=== PATIENT | female | born 1980 | race American Indian/Alaskan Native ===

== ENCOUNTER 2016-10-14 20:14 | Emergency (ER) | payer SELFPAY ==
[2016-10-14 21:18] LABS: Anion Gap 19 mmol/L; BUN/Creatinine Ratio 11.81; Blood Urea Nitrogen 13 mg/dL (7-17); Calcium 9.2 mg/dL (8.4-10.2); Carbon Dioxide 26 mmol/L (22-30); Chloride 97.5 mmol/L (98-107); Glucose 100 mg/dL (65-100); Sodium 138 mmol/L (137-145)
[2016-10-14 21:36] LABS: Bilirubin,Urine NEG (Negative); Blood,Urine MOD (Negative); Ketones,Urine NEG (Negative); Leukocyte Esterase,Urine NEG (Negative); Nitrite,Urine NEG (Negative); Protein,Urine <15 mg/dL mg/dL (Negative); Urobilinogen,Urine < 2.0 mg/dL (<2.0)
[2016-10-14 21:50] LABS: Hematocrit 33.3 % (30.3-42.9); Hemoglobin 10.5 gm/dl (10.1-14.3); Mean Corpuscular HGB Conc 31 % (30-34); Mean Corpuscular Volume 81 fl (79-97); Platelet Count 397 K/mm3 (140-440); Red Blood Count 4.11 M/mm3 (3.65-5.03); Red Cell Distribution Width 17.2 % (13.2-15.2); White Blood Count 4.7 K/mm3 (4.5-11.0)
[2016-10-14 21:52] LABS: Mean Corpuscular Hemoglobin 26 pg (28-32)
[2016-10-14] MEDS ORDERED: TYLENOL PO ONE (23:27)
[2016-10-15 00:01] VITALS: BP 115/68
[2016-10-15] MEDS ORDERED: VALIUM IM ONE (00:57)
[2016-10-15] MEDS ORDERED: ZOFRAN ODT PO ONE (00:57)
[2016-10-15] MEDS ORDERED: NACL 0.9% 1000 ML 1,000 ML IV ONE (00:59)
[2016-10-15] MEDS ORDERED: ZOFRAN IV ONE (00:59)
[2016-10-15] MEDS ORDERED: VALIUM IV ONE (00:59)
--- NOTE | 2016-10-15 00:59 | Emergency Department Report ---
HPI - General Chief Complaint: Back Pain/Injury Time Seen by Provider: 10/15/16 00:18 - HPI HPI: The patient's presence of female presents for evaluation of left flank pain. The patient reports left flank pain for the past 5 days, constant since onset, 10/10 in severity, radiating into the left abdomen, sharp in quality. The patient denies fever, chills, night sweats, chest pain, dyspnea, diarrhea, blood in the stool, dark tarry stool, dysuria, hematuria, vaginal bleeding, genital discharge, inability to pass flatus. ED Past Medical Hx - Past Medical History Hx Hypertension: Yes - Surgical History Additional Surgical History: rt ear,tubaligation - Social History Smoking Status: Never Smoker Substance Use Type: Alcohol - Medications Home Medications: Home Medications Medication Instructions Recorded Confirmed Last Taken Type HYDROcodone/APAP 5-325 [[place] 1 each PO Q8HR PRN #10 tablet 01/14/14 Unknown Rx 5/325] Phenazopyridine [Pyridium] 200 mg PO Q8H #6 tablet 01/14/14 Unknown Rx Sulfamethoxazole/Trimethoprim 1 each PO BID #20 tablet 01/14/14 Unknown Rx [Bactrim Ds] Ciprofloxacin HCl [Ciprofloxacin 500 mg PO BID #20 tablet 04/09/16 Unknown Rx TAB] Lisinopril/Hydrochlorothiazide 1 tab PO QDAY #30 tab 06/05/16 Unknown Rx [Zestoretic 20-25 mg] Cyclobenzaprine HCl [Flexeril 5 MG 5 mg PO Q8HR PRN #15 tab 10/15/16 Unknown Rx TAB] Ibuprofen [Motrin] 800 mg PO Q8HR PRN #15 tablet 10/15/16 Unknown Rx ED Review of Systems ROS: Stated complaint: LT SIDE PRESSURE/LIGHT HEADED/SOB Other details as noted in HPI Constitutional: denies: fever ENT: denies: throat or neck pain Respiratory: denies: cough, shortness of breath Cardiovascular: denies: chest pain Endocrine: denies unexplained weight loss or gain Gastrointestinal: denies: abdominal pain, nausea Genitourinary: denies: dysuria Musculoskeletal: reports left sided pain denies: leg swelling Skin: denies: rash Neurological: denies: headache Hematological/Lymphatic: denies: easy bleeding or easy bruising Psych: denies sadness or hopelessness Physical Exam - Physical Exam Vital Signs: Vital Signs 10/14/16 10/14/16 10/15/16 20:24 23:22 00:00 Temperature 97.4 F L 98.1 F 98.7 F Pulse Rate 91 H 87 82 Respiratory 18 18 14 Rate Blood Pressure 116/74 109/71 Blood Pressure 115/68 [Left] O2 Sat by Pulse 100 100 99 Oximetry Physical Exam: General: well-nourished, well-developed, no acute distress Head: Normocephalic, atraumatic Eyes: normal sclera ENT: Mucous membranes are pale and dry Neck: No neck stiffness, no cervical adenopathy Respiratory: Breath sounds equal bilaterally, no wheezing, rales, or rhonchi Cardio: S1 and S2 present, no murmurs, rubs, gallops, capillary refill is delayed Abdomen: Normoactive bowel sounds, soft abdomen, LUQ tenderness present, no rigidity, no guarding or rebound tenderness Chest WALL/Back: No tenderness to palpation of the chest wall, left sided CVA tenderness with superficial palpation present Musc: No pitting edema Skin: No rash Neuro: no facial drooping, normal speech Psych: Normal affect ED Course Vital Signs 10/14/16 10/14/16 10/15/16 20:24 23:22 00:00 Temperature 97.4 F L 98.1 F 98.7 F Pulse Rate 91 H 87 82 Respiratory 18 18 14 Rate Blood Pressure 116/74 109/71 Blood Pressure 115/68 [Left] O2 Sat by Pulse 100 100 99 Oximetry ED Medical Decision Making - Lab Data Result diagrams: 10/14/16 20:48 10/14/16 20:48 - Medical Decision Making The patient is 36-year-old female well-known to myself, recently evaluated by myself for the same complaints within the past 4 days at an [facility], and [facility]. Evaluation at that time was completely unremarkable. The patient was seen and examined by myself. The patient is placed on a finance manager and continuous pulse ox. On initial evaluation, the patient was found to be in no distress. Evaluation orders are placed. The patient given 1 L normal saline fluid bolus for treatment of dehydration and IV Valium for treatment of her pain. Lab results were non-concerning including WBC , hemoglobin, hematocrit, electrolytes, renal function. The patient was reevaluated and reported that their symptoms were markedly improved. The patient is stable for discharge with outpatient follow-up. The patient is given follow-up and return instructions. The patient expressed understanding and agreed with the plan. The patient is discharged in stable condition. Critical care attestation.: If time is entered above; I have spent that time in minutes in the direct care of this critically ill patient, excluding procedure time. ED Disposition Clinical Impression: Acute left flank pain, Dehydration, Acute abdominal pain in left upper quadrant Disposition: DISCHARGED TO HOME OR SELFCARE Is pt being admited?: No Does the pt Need Aspirin: No Condition: Stable Instructions: Flank Pain (ED), Dehydration (ED) Referrals: PRIMARY CARE, [Primary Care Provider] - 3-5 Days Time of Disposition: 00:58
== END 2016-10-15 02:55 | disposition home or self-care (01) ==
LOC: ED 20:14
DX: R10.30 Lower abdominal pain, unspecified (principal); E86.0 Dehydration; I10 Essential (primary) hypertension
CPT/HCPCS: 36415; 80048; 81001; 81025; 85027; 96361; 96374; 96375; 99283; J2405; J3360; J7030

== ENCOUNTER 2016-10-16 19:45 | Inpatient (IN) | payer SELFPAY ==
[2016-10-16] MEDS ORDERED: MAGNESIUM SULFATE 2GM/50ML 2 GM/50 ML BAG IV ONE (21:21)
[2016-10-16] MEDS ORDERED: REGLAN IV ONE (21:21)
[2016-10-16] MEDS ORDERED: BENADRYL IV ONE (21:21)
--- NOTE | 2016-10-16 21:22 | Emergency Department Report ---
ED General Adult HPI - General Chief complaint: Headache Stated complaint: PRESSURE IN HEAD/BLURRY VISION Time Seen by Provider: 10/16/16 21:11 Source: patient, family, RN notes reviewed Mode of arrival: Ambulatory Limitations: No Limitations - History of Present Illness Initial comments: This is a 36-year-old female. She is previously unknown to me. She does not have a primary care doctor. She reports a past medical history of hypertension. The patient presents to the ER today complaining of headache. The headache is frontal and globally frontal and all sinuses. It is throbbing. It has been present for the past 3-4 days. It is not sudden or thunderclap in nature. It did not reach maximal intensity within an hour. It is not the worst headache of her life. She reports onset of worst headache approximately one year ago. She reports being seen at another hospital a few days ago for similar symptoms, and she reports that she had left-sided weakness and numbness. She reports having had a CAT scan of the chest, and reports that is negative. She also reports a cough and mucus production. There is currently no focal extremity weakness or numbness. There is no severe neck pain or neck stiffness. No fevers that she is aware of. She reports that she is not . She reported binocular blurry vision to the triage nurse, but to me, she denies blurry vision. She does report sensitivity to light and to sound. She does not have a formal diagnosis of migraines. -: Gradual Location: head, face Quality: aching Consistency: intermittent Improves with: other (exposure to light and sound worsens headache, palpation worsens the headache. Rest improves the headache) Associated Symptoms: cough, headaches, loss of appetite, weakness - Related Data Previous Rx's Medication Instructions Recorded Last Taken Type Cyclobenzaprine HCl [Flexeril 5 MG 5 mg PO Q8HR PRN #15 tab 10/15/16 Unknown Rx TAB] Butalb/Acetamin/Caff 50-325-40 2 tab PO Q4H PRN #30 tablet 10/18/16 Unknown Rx [Fioricet] Ketorolac [Toradol] 10 mg PO Q6H PRN #20 tablet 10/18/16 Unknown Rx Lisinopril/Hydrochlorothiazide 1 tab PO QDAY #30 tab 10/18/16 Unknown Rx [Zestoretic 20-25 mg] methylPREDNISolone [Medrol Dose 4 mg PO BID #3 pack 10/18/16 Unknown Rx [place]] Allergies Allergy/AdvReac Type Severity Reaction Status Date / Time hydrocodone AdvReac Vomiting Verified 04/09/16 19:55 ED Review of Systems ROS: Stated complaint: PRESSURE IN HEAD/BLURRY VISION Other details as noted in HPI Constitutional: denies: fever, malaise Eyes: denies: vision change ENT: denies: epistaxis Respiratory: denies: cough Cardiovascular: denies: chest pain Gastrointestinal: denies: abdominal pain Musculoskeletal: arthralgia, myalgia Neurological: headache, weakness, numbness Psychiatric: anxiety ED Past Medical Hx - Past Medical History Previous Medical History?: Yes Hx Hypertension: Yes - Surgical History Past Surgical History?: Yes Additional Surgical History: rt ear,tubaligation - Social History Smoking Status: Never Smoker Substance Use Type: None - Medications Home Medications: Home Medications Medication Instructions Recorded Confirmed Last Taken Type Cyclobenzaprine HCl [Flexeril 5 MG 5 mg PO Q8HR PRN #15 tab 10/15/16 Unknown Rx TAB] Butalb/Acetamin/Caff 50-325-40 2 tab PO Q4H PRN #30 tablet 10/18/16 Unknown Rx [Fioricet] Ketorolac [Toradol] 10 mg PO Q6H PRN #20 tablet 10/18/16 Unknown Rx Lisinopril/Hydrochlorothiazide 1 tab PO QDAY #30 tab 10/18/16 Unknown Rx [Zestoretic 20-25 mg] methylPREDNISolone [Medrol Dose 4 mg PO BID #3 pack 10/18/16 Unknown Rx [place]] ED Physical Exam - General Limitations: No Limitations General appearance: alert, in no apparent distress - Head Head exam: Present: atraumatic, normocephalic - Eye Eye exam: Present: normal appearance, PERRL, EOMI, other (visual acuity intact to finger counting, color perception, reading at a close distance). Absent: nystagmus - ENT ENT exam: Present: normal exam, normal orophraynx, mucous membranes moist, normal external ear exam - Neck Neck exam: Present: normal inspection, full ROM. Absent: tenderness, meningismus - Respiratory Respiratory exam: Present: normal lung sounds bilaterally. Absent: respiratory distress, wheezes, rales, rhonchi, stridor, chest wall tenderness, accessory muscle use, decreased breath sounds, prolonged expiratory - Cardiovascular Cardiovascular Exam: Present: regular rate, normal rhythm, normal heart sounds. Absent: bradycardia, tachycardia, irregular rhythm, systolic murmur, diastolic murmur, rubs, gallop - GI/Abdominal GI/Abdominal exam: Present: soft, normal bowel sounds. Absent: distended, tenderness, guarding, rebound, rigid, pulsatile mass - Extremities Exam Extremities exam: Present: normal inspection, full ROM, normal capillary refill. Absent: tenderness, pedal edema, joint swelling, calf tenderness - Back Exam Back exam: Present: normal inspection, full ROM. Absent: tenderness, CVA tenderness (R), CVA tenderness (L), muscle spasm, paraspinal tenderness, vertebral tenderness - Neurological Exam Neurological exam: Present: alert, oriented X3, normal gait (normal gait. Normal tandem gait. Negative Romberg examination.), other (Extraocular movements intact. Tongue midline. No facial droop. Facial sensation intact to light touch in the V1, V2, V3 distribution bilaterally. 5 and 5 strength in 4 extremities.. Sensation is intact to light touch in 4 extremities.). Absent : motor sensory deficit - Psychiatric Psychiatric exam: Present: normal affect, normal mood - Skin Skin exam: Present: warm, dry, intact, normal color. Absent: rash ED Course Vital Signs 10/16/16 19:52 Temperature 99.3 F Pulse Rate 90 Blood Pressure 140/95 O2 Sat by Pulse 99 Oximetry - Reevaluation(s) Reevaluation #1: 10/16/16 21:31 differential diagnosis: Migraine headache, tension headache, cluster headache, intracranial mass lesion, transient ischemic attack, bronchitis Assessment and plan: 36-year-old female with complaint of headache, nonspecific blurry vision, resolved left-sided weakness a few days ago. Most likely complex migraine, however she has not had a formal diagnosis of complex migraine in the past. We will treat her symptomatically. She reports that she is not . A noncontrast CT scan of the brain is ordered. not a TPA candidate, currently has an NIH score of 0. Plan to admit once initially points back. Reevaluation #2: 10/16/16 22:[address] scan of the brain is negative. Aspirin is ordered. X-ray chest is pending. case d/w Hospital physician Dr Taylor, who accepts patient to his service ED Medical Decision Making - Lab Data Result diagrams: 10/16/16 21:43 10/16/16 21:43 Vital Signs 10/16/16 19:52 Temperature 99.3 F Pulse Rate 90 Blood Pressure 140/95 O2 Sat by Pulse 99 Oximetry Lab Results 10/16/16 Range/Units 21:43 WBC 5.0 (4.5-11.0) K/mm3 RBC 3.84 (3.65-5.03) M/mm3 Hgb 9.8 L (10.1-14.3) gm/dl Hct 31.3 (30.3-42.9) % MCV 82 (79-97) fl MCH 26 L (28-32) pg MCHC 31 (30-34) % RDW 17.3 H (13.2-15.2) % Plt Count 325 (140-440) K/mm3 Lymph % (Auto) 15.7 (13.4-35.0) % [place] % (Auto) 9.9 H (0.0-7.3) % Eos % (Auto) 0.4 (0.0-4.3) % Baso % (Auto) 1.0 (0.0-1.8) % Lymph # 0.8 L (1.2-5.4) K/mm3 [place] # 0.5 (0.0-0.8) K/mm3 Eos # 0.0 (0.0-0.4) K/mm3 Baso # 0.0 (0.0-0.1) K/mm3 Seg Neutrophils % 73.0 H (40.0-70.0) % Seg Neutrophils # 3.6 (1.8-7.7) K/mm3 - EKG Data -: EKG Interpreted by Vt EKG shows normal: sinus rhythm, axis, intervals, QRS complexes, ST-T waves Rate: normal - EKG Data When compared to previous EKG there are: previous EKG unavailable - Radiology Data Radiology results: report reviewed, image reviewed Noncontrast CT scan of the brain is negative for acute disease, patient is status post right-sided mastoidectomy in the distant past Critical care attestation.: If time is entered above; I have spent that time in minutes in the direct care of this critically ill patient, excluding procedure time. ED Disposition Clinical Impression: Headache, Cough, TIA (transient ischemic attack) Disposition: OP ADMITTED IP TO THIS HOSP Is pt being admited?: Yes Does the pt Need Aspirin: Yes Condition: Stable
--- NOTE | 2016-10-16 21:49 | Cat Scan Report ---
FINAL REPORT PROCEDURE: CT HEAD/BRAIN WO CON TECHNIQUE: Computerized tomography of the head was performed without contrast material. HISTORY: suspected stroke COMPARISON: No prior studies are available for comparison. FINDINGS: Skull and scalp: Normal. Paranasal sinuses: Normal. Ventricles and subarachnoid spaces: Normal. Cerebrum: No evidence of hemorrhage, acute infarction or mass . Cerebellum and brainstem: No evidence of hemorrhage, acute infarction or mass. Vasculature: Normal. Comments: There has been a right mastoidectomy.. IMPRESSION: There is no intracranial hemorrhage, edema, mass, mass effect or midline shift. There is been a right mastoidectomy.
[2016-10-16 22:01] LABS: Eosinophils % (Auto) 0.4 % (0.0-4.3); Hematocrit 31.3 % (30.3-42.9); Hemoglobin 9.8 gm/dl (10.1-14.3); Mean Corpuscular HGB Conc 31 % (30-34); Mean Corpuscular Volume 82 fl (79-97); Platelet Count 325 K/mm3 (140-440); Red Blood Count 3.84 M/mm3 (3.65-5.03); Red Cell Distribution Width 17.3 % (13.2-15.2)
[2016-10-16 22:03] LABS: Mean Corpuscular Hemoglobin 26 pg (28-32)
[2016-10-16 22:09] LABS: INR 1.07 (0.87-1.13)
[2016-10-16 22:10] LABS: Partial Thromboplastin Time 32.4 Sec. (24.2-36.6)
[2016-10-16 22:29] LABS: Alanine Aminotransferase 11 units/L (7-56); Albumin/Globulin Ratio 1.1 %; Alkaline Phosphatase 67 units/L (35-129); Anion Gap 16 mmol/L; BUN/Creatinine Ratio 8.88; Bilirubin,Total 0.2 mg/dL (0.1-1.2); Blood Urea Nitrogen 8 mg/dL (7-17); Calcium 9.1 mg/dL (8.4-10.2); Carbon Dioxide 27 mmol/L (22-30); Chloride 99.7 mmol/L (98-107); Creatine Kinase 47 units/L (30-135); Glucose 90 mg/dL (65-100); Potassium 4.3 mmol/L (3.6-5.0); Sodium 138 mmol/L (137-145); Total Protein 7.7 g/dL (6.3-8.2)
[2016-10-16 22:31] LABS: Creatine Kinase MB < 1.0 ng/mL (0.0-4.0)
[2016-10-16] MEDS ORDERED: BABY ASPIRIN PO ONE (22:35)
[2016-10-16] MEDS ORDERED: MORPHINE IV PRN (23:26)
[2016-10-16] MEDS ORDERED: MILK OF MAGNESIA PO PRN (23:26)
[2016-10-16] MEDS ORDERED: ZOFRAN IV PRN (23:26)
[2016-10-16] MEDS ORDERED: TYLENOL PO PRN (23:26)
[2016-10-16] MEDS ORDERED: DULCOLAX PR PRN (23:26)
[2016-10-16] MEDS ORDERED: HEPARIN SUB-Q ONE (23:34)
[2016-10-16] MEDS ORDERED: BENADRYL ONE (23:37)
[2016-10-16] MEDS ORDERED: REGLAN ONE (23:37)
--- NOTE | 2016-10-16 23:58 | History and Physical Report ---
History of Present Illness Date of examination: 10/16/16 Date of admission: 10/16/16 23:26 Chief complaint: Headache for 3 days with intermittent blurred vision History of present illness: 86-year-old -[place] female with history of hypertension seen in the emergency department for above complaint She was seen in the emergency department at [facility] 3 days ago for headache subsequently discharged. Details not known at this time Since then she continues to have headaches she says it's more like a pressure in the head than a headache. has intermittent blurred vision. She also complains of cough with mucoid sputum and states her pressure in the head is increases when she bends down. He denies any fever or chills sore throat dysphagia nasal congestion She denies any nausea or vomitings abdominal pain hematemesis or melena She denies any chest pain or shortness of breath palpitations or syncope Denies any dysuria or urinary frequency or flank pain or hematuria Past History Past Medical History: hypertension Past Surgical History: Other (tubal ligation and right mastoidectomy) Social history: no significant social history Family history: no significant family history Medications and Allergies Allergies Allergy/AdvReac Type Severity Reaction Status Date / Time hydrocodone AdvReac Vomiting Verified 04/09/16 19:55 Home Medications Medication Instructions Recorded Confirmed Last Taken Type HYDROcodone/APAP 5-325 [[place] 1 each PO Q8HR PRN #10 tablet 01/14/14 Unknown Rx 5/325] Phenazopyridine [Pyridium] 200 mg PO Q8H #6 tablet 01/14/14 Unknown Rx Sulfamethoxazole/Trimethoprim 1 each PO BID #20 tablet 01/14/14 Unknown Rx [Bactrim Ds] Ciprofloxacin HCl [Ciprofloxacin 500 mg PO BID #20 tablet 04/09/16 Unknown Rx TAB] Lisinopril/Hydrochlorothiazide 1 tab PO QDAY #30 tab 06/05/16 Unknown Rx [Zestoretic 20-25 mg] Cyclobenzaprine HCl [Flexeril 5 MG 5 mg PO Q8HR PRN #15 tab 10/15/16 Unknown Rx TAB] Ibuprofen [Motrin] 800 mg PO Q8HR PRN #15 tablet 10/15/16 Unknown Rx Active Meds: Active Medications Acetaminophen (Tylenol) 650 mg PO Q4H PRN PRN Reason: Pain MILD(1-3)/Fever >100.5/ASENCIO Bisacodyl (Dulcolax) 10 mg MS QDAY PRN PRN Reason: Constipation unrelieved by MOM Lisinopril (Zestril) 20 mg PO DAILY MARÍA Magnesium Hydroxide (Milk Of Magnesia) 30 ml PO Q4H PRN PRN Reason: Constipation Metoprolol Tartrate (Lopressor) 25 mg PO DAILY MARÍA Morphine Sulfate (Morphine) 1 mg IV Q4H PRN PRN Reason: Pain, Moderate (4-6) Ondansetron HCl (Zofran) 4 mg IV Q8H PRN PRN Reason: N/V unrelieved by Reglan Review of Systems All systems: negative (as stated above in the history of present illness) Exam - Constitutional Vitals: Temp Pulse Resp BP Pulse Ox 99.3 F 90 140/95 99 10/16/16 19:52 10/16/16 19:52 10/16/16 19:52 10/16/16 19:52 General appearance: Present: no acute distress, well-nourished - EENT Eyes: Present: PERRL, EOM intact ENT: hearing intact, clear oral mucosa, other (no sinus tenderness), no thrush - Neck Neck: Present: supple, normal ROM. Absent: masses or JVD - Respiratory Respiratory effort: normal Respiratory: bilateral: CTA - Cardiovascular Rhythm: regular Heart Sounds: Present: S1 & S2 - Extremities Extremities: No edema - Abdominal General gastrointestinal: Present: soft, non-tender. Absent: hepatomegaly, splenomegaly Female genitourinary: Present: deferred - Rectal Rectal Exam: deferred - Integumentary Integumentary: Present: clear - Musculoskeletal Musculoskeletal: strength equal bilaterally - Psychiatric Psychiatric: appropriate mood/affect - Neurologic Neurologic: no focal deficits, moves all extremities Results - Labs CBC & Chem 7: 10/16/16 21:43 10/16/16 21:43 Assessment and Plan - Patient Problems (1) Headache Current Visit: Yes Status: Acute Qualifiers: Headache type: H Headache chronicity pattern: H Intractability: I Plan to address problem: Etiology unclear CT of the head shows old not acute lesions and normal paranasal sinuses Rule out complex migraine, rule out tension headaches We will request a neurology consult (2) Hypertension Current Visit: Yes Status: Chronic Qualifiers: Hypertension type: H Plan to address problem: Well-controlled Continue home medication (3) Normocytic anemia Current Visit: Yes Status: Chronic Plan to address problem: No overt bleed Most likely chronic No anemia workup at this time
[2016-10-17] MEDS ORDERED: HEPARIN ONE (00:31)
--- NOTE | 2016-10-17 07:17 | Admit Criteria Form ---
Admission Criteria Documentation: HEADACHES Clinical Indications for Admission to Inpatient Care (Place 'X' for any and all applicable criteria): Admission is indicated for ANY ONE of the following(1)(2)(3)(4): [X]I. Inpatient admission required rather than observational care (Also use Headaches: Observation Care as appropriate) because of ANY ONE of the following: [X]a) Severe pain requiring acute inpatient management [ ]b) Altered mental status that is severe or persistent [ ]c) Vomiting or dehydration that is severe or persistent [ ]d) New-onset focal neurologic deficit that is severe or persistent [ ]e) Hypertension requiring inpatient treatment [ ]f) Severe (new) neurologic findings requiring inpatient care as indicated by ANY ONE of following(9)(10): [ ]1) Papilledema [ ]2) Cerebral edema [ ]3) Mass effect on CT scan [ ]4) Cerebral bleeding, ischemia, or vasospasm(16) [ ]5) Hydrocephalus(17) [ ]6) Uncontrolled seizures [ ]g) IV infusion of anticoagulation, platelet inhibitors vasoactive, or antiarrhythmic medication. [ ]h) Cerebral bleeding, hydrocephalus, or vasospasm monitoring (16) [ ]i) Increased intracranial pressure or cerebral edema monitoring (17) [ ]j) Other condition, treatment or monitoring requiring inpatient admission [ ]II. Unruptured but threatening aneurysm or vascular malformation [ ]III. Venous sinus thrombosis [ ]IV. Increased intracranial pressure [ ]V. Cerebral spinal fluid leak with decreased intracranial pressure [ ]. Medication-overuse headache that has failed all outpatient management options [ ]VII. Vasculitis (eg, giant cell (temporal) arteritis, central nervous system vasculitis) requiring IV corticosteroids, IV antithrombotic therapy, or inpatient monitoring (eg, visual symptoms or findings, other ischemic manifestations)[A](10)(11) Extended stay beyond goal length of stay may be needed for (27): [ ]a) Intractable migraine [ ]b) Subarachnoid or intracranial hemorrhage [ ]c) Malignant hypertension [ ]d) Detoxification from drug withdrawal in medication-overuse headache (29) The original [facility] content created by [email or web address] [employer] has been revised. The portions of the content which have been revised are identified through the use of italic text or in bold, and [employer] has neither reviewed nor approved the modified material.All other unmodified content is copyright [facility]. Please see references footnoted in the original [facility] edition 2016 Admission Criteria Met: Yes
--- NOTE | 2016-10-17 08:55 | XRay Report ---
CHEST ONE VIEW INDICATION: Cough. COMPARISON: None similar. FINDINGS: Portable, single, frontal chest radiograph demonstrates normal cardiomediastinal silhouette. Clear lungs. Intact bones. CONCLUSION: No acute disease in the chest. Thank you for the opportunity to participate in this patient's care.
[2016-10-17] MEDS: ZESTRIL PO SCH (10:18)
[2016-10-17] MEDS: LOPRESSOR PO SCH (10:19)
[2016-10-17] MEDS ORDERED: FIORICET PO PRN (12:00)
--- NOTE | 2016-10-17 12:20 | Consultation ---
History of Present Illness Consult date: 10/17/16 Requesting physician: ERIS DONNELLY Reason for Consult: ASENCIO Chief complaint: head pressure History of present illness: 36 YO F p/w 1 week of intermittent head pressure. Sx began on 10/10 w/ odd "out of body" experience but no LOC. Location of pain is bifrontal . Duration of pain is constant waxing and waning. Pain is worsened by activity and sounds/ light and relieved by rest. She affirms nausea but denies vomiting. There are no clear temporal factors. Severity is such to limit ability to function comfortably. She affirms prior sx of lightheadedness and tunnel vision assoc w/ low CBG. On 10/14 she felt L sided heaviness greater than right. She denies neck pain. Past History Past Medical History: hypertension Past Surgical History: Other (tubal ligation and right mastoidectomy) Social history: no significant social history Family history: no significant family history Medications and Allergies Allergies Allergy/AdvReac Type Severity Reaction Status Date / Time hydrocodone AdvReac Vomiting Verified 04/09/16 19:55 Home Medications Medication Instructions Recorded Confirmed Last Taken Type HYDROcodone/APAP 5-325 [[place] 1 each PO Q8HR PRN #10 tablet 01/14/14 Unknown Rx 5/325] Phenazopyridine [Pyridium] 200 mg PO Q8H #6 tablet 01/14/14 Unknown Rx Sulfamethoxazole/Trimethoprim 1 each PO BID #20 tablet 01/14/14 Unknown Rx [Bactrim Ds] Ciprofloxacin HCl [Ciprofloxacin 500 mg PO BID #20 tablet 04/09/16 Unknown Rx TAB] Lisinopril/Hydrochlorothiazide 1 tab PO QDAY #30 tab 06/05/16 Unknown Rx [Zestoretic 20-25 mg] Cyclobenzaprine HCl [Flexeril 5 MG 5 mg PO Q8HR PRN #15 tab 10/15/16 Unknown Rx TAB] Ibuprofen [Motrin] 800 mg PO Q8HR PRN #15 tablet 10/15/16 Unknown Rx Active Meds: Active Medications Acetaminophen (Tylenol) 650 mg PO Q4H PRN PRN Reason: Pain MILD(1-3)/Fever >100.5/ASENCIO Last Admin: 10/17/16 11:10 Dose: 650 mg Acetaminophen/Butalbital/Caffeine (Fioricet) 2 tab PO Q4H PRN PRN Reason: Headache Bisacodyl (Dulcolax) 10 mg NE QDAY PRN PRN Reason: Constipation unrelieved by MOM Dexamethasone (Decadron) 4 mg IV Q12HR [facility] Stop: 10/20/16 10:01 Valproate Sodium 500 mg/ (Sodium Chloride) 105 mls @ 100 mls/hr IV Q8HR [facility] Stop: 10/18/16 07:02 Lisinopril (Zestril) 20 mg PO DAILY [facility] Last Admin: 10/17/16 10:18 Dose: 20 mg Magnesium Hydroxide (Milk Of Magnesia) 30 ml PO Q4H PRN PRN Reason: Constipation Metoprolol Tartrate (Lopressor) 25 mg PO DAILY [facility] Last Admin: 10/17/16 10:19 Dose: Not Given Morphine Sulfate (Morphine) 1 mg IV Q4H PRN PRN Reason: Pain, Moderate (4-6) Ondansetron HCl (Zofran) 4 mg IV Q8H PRN PRN Reason: N/V unrelieved by Reglan Review of Systems All systems: negative Constitutional: fatigue, weakness, malaise, lethargy Neurological: headaches Physical Examination - Vital Signs Vital Signs: Vital Signs Temp Pulse BP Pulse Ox 99.3 F 90 140/95 99 10/16/16 19:52 10/16/16 19:52 10/16/16 19:52 10/16/16 19:52 - Constitutional General appearance: comfortable - EENT EENT: Present: ATNC, PERRL, mucous membranes moist, hearing intact, vision intact - Respiratory Respiratory: Present: chest non-tender, normal breath sounds, no respiratory distress - Cardiovascular Cardiovascular: Present: regular rate Extremities: Present: no peripheral edema bilatateraly, no clubbing, cyanosis, no inflammation, no ischemia or petechiae - Gastrointestinal Gastrointestinal: Present: normoactive bowel sounds, soft, non-distended - Integumentary Integumentary: Present: normal - Neurologic Cranial nerve examination: PERRL, EOMI, VFF, V1/V2/V3 grossly intact, face symmetric, tongue midline, intact, intact shoulder shrug, intact cough reflex, Intact Vestibulo-ocular r, intact corneal reflex, normal palatal elevation Speech examination: intact Sensorimotor examination: intact Detailed motor examination: full strength in all amy Motor examination - right side: 5/5: biceps, triceps, wrist flexion, wrist extension, utilization management rn, hip flexors, knee extensors, dorsiflexion, toe extension (EHL) , plantarflexion Motor examination - left side: 5/5: biceps, triceps, wrist flexion, wrist extension, utilization management rn, hip flexors, knee extensors, dorsiflexion, toe extension (EHL) , plantarflexion Detailed sensory examination: intact, light touch, temperature Reflex and gait examination: intact Reflexes: 2+: ankle, bicep, knee, tricep - Musculoskeletal Musculoskeletal: Present: no fluid collection, no pain, normal range of motion - Psychiatric Psychiatric: Present: mood/affect appropriate, cooperative Results - Laboratory Findings CBC and BMP: 10/16/16 21:43 10/16/16 21:43 Assessment and Plan 36 YO F Hx 1 prior reported migraine who p/w 1 week of constant crescendo pattern pressure pulsatile head pain assoc w/ N/photo-/sono-phobia and vague L > R sided heaviness but no other migrainous features. There are no meningeal signs/sx otherwise. I suspect hormonal, tension type or migrainous ASENCIO. Neuro exam nonfocal intact w/o deficits. CTH neg. Plan and Recommendations: 1. Neuro checks 2. Brain imaging: MRI Brain +/- Paulo 3. SILVIA Protocol-Decadron 10mg IV x 1 and cont 4mg IV BID x 6 doses, VPA 500mg IV Q8hrs x 3 doses, Magnesium 1mg IV Q24hrs x 3 doses, 4. Analgesia PRN: Toradol 15-30mg IV Q4-6hrs prn and Fioricet 1-2 tabs Q4-6hrs prn 5. Reduce MAPs by 10-15% daily to achieve normotension
--- NOTE | 2016-10-17 15:00 | Magnetic Resonance Report ---
MRI BRAIN WITH/WITHOUT CONTRAST: History: Headache. Comparison: CT head without contrast performed 10/16/16. Technique: Multiple T1 and T2 weighted images were obtained in multiple planes. Axial diffusion and gradient imaging was performed. Post contrast T1 images in two planes were obtained following IV gadolinium. Findings: The brain parenchyma signal intensity and its vogel-white interface are normal on all sequences. No abnormal parenchymal signal. No diffusion restriction, hemorrhage, mass effect or extra-axial fluid collection. Ventricular size is normal and symmetric. The basal cisterns are clear. The brainstem and cerebellar hemispheres are within normal limits. The fourth ventricle is midline. The paranasal sinuses and mastoid air cells are well aerated. Right mastoidectomy changes are again suggested. The left mastoid air cells are well-aerated. Normal flow voids are identified in the appropriate vessels at the red devil of [place]. No abnormal enhancement is identified following IV gadolinium. Impression: 1. Unremarkable MRI brain with and without contrast.
[2016-10-17] MEDS: DepaCON 500 MG in NACL 0.9% 100 ML IV SCH ×2 (16:19→21:50)
--- NOTE | 2016-10-17 17:52 | Progress Note ---
Assessment and Plan Assessment and plan: 1. Migraine versus tension headache Hospitalist Physical - Constitutional Vitals: Temp Pulse Resp BP Pulse Ox 98.1 F 76 18 130/88 97 10/17/16 15:00 10/17/16 15:00 10/17/16 15:00 10/17/16 15:00 10/17/16 12:07 General appearance: Present: no acute distress, well-nourished Results - Labs CBC & Chem 7: 10/16/16 21:43 10/16/16 21:43 Labs: Laboratory Last Values WBC 5.0 K/mm3 (4.5-11.0) 10/16/16 21:43 RBC 3.84 M/mm3 (3.65-5.03) 10/16/16 21:43 Hgb 9.8 gm/dl (10.1-14.3) L 10/16/16 21:43 Hct 31.3 % (30.3-42.9) 10/16/16 21:43 MCV 82 fl (79-97) 10/16/16 21:43 MCH 26 pg (28-32) L 10/16/16 21:43 MCHC 31 % (30-34) 10/16/16 21:43 RDW 17.3 % (13.2-15.2) H 10/16/16 21:43 Plt Count 325 K/mm3 (140-440) 10/16/16 21:43 Lymph % (Auto) 15.7 % (13.4-35.0) 10/16/16 21:43 [place] % (Auto) 9.9 % (0.0-7.3) H 10/16/16 21:43 Eos % (Auto) 0.4 % (0.0-4.3) 10/16/16 21:43 Baso % (Auto) 1.0 % (0.0-1.8) 10/16/16 21:43 Lymph # 0.8 K/mm3 (1.2-5.4) L 10/16/16 21:43 [place] # 0.5 K/mm3 (0.0-0.8) 10/16/16 21:43 Eos # 0.0 K/mm3 (0.0-0.4) 10/16/16 21:43 Baso # 0.0 K/mm3 (0.0-0.1) 10/16/16 21:43 Seg Neutrophils % 73.0 % (40.0-70.0) H 10/16/16 21:43 Seg Neutrophils # 3.6 K/mm3 (1.8-7.7) 10/16/16 21:43 PT 13.8 Sec. (12.2-14.9) 10/16/16 21:43 INR 1.07 (0.87-1.13) 10/16/16 21:43 APTT 32.4 Sec. (24.2-36.6) 10/16/16 21:43 Thrombin Time 16.4 Sec. (15.1-19.6) 10/16/16 21:43 Sodium 138 mmol/L (137-145) 10/16/16 21:43 Potassium 4.3 mmol/L (3.6-5.0) 10/16/16 21:43 Chloride 99.7 mmol/L (98-107) 10/16/16 21:43 Carbon Dioxide 27 mmol/L (22-30) 10/16/16 21:43 Anion Gap 16 mmol/L 10/16/16 21:43 BUN 8 mg/dL (7-17) 10/16/16 21:43 Creatinine 0.9 mg/dL (0.7-1.2) 10/16/16 21:43 Estimated GFR > 60 ml/min 10/16/16 21:43 BUN/Creatinine Ratio 8.88 % 10/16/16 21:43 Glucose 90 mg/dL (65-100) 10/16/16 21:43 Calcium 9.1 mg/dL (8.4-10.2) 10/16/16 21:43 Total Bilirubin 0.2 mg/dL (0.1-1.2) 10/16/16 21:43 AST 14 units/L (5-40) 10/16/16 21:43 ALT 11 units/L (7-56) 10/16/16 21:43 Alkaline Phosphatase 67 units/L (35-129) 10/16/16 21:43 Total Creatine Kinase 47 units/L (30-135) 10/16/16 21:43 CK-MB (CK-2) < 1.0 ng/mL (0.0-4.0) 10/16/16 21:43 CK-MB (CK-2) Rel Index 2.1 (0-4) 10/16/16 21:43 Troponin T < 0.010 ng/mL (0.00-0.029) 10/16/16 21:43 Total Protein 7.7 g/dL (6.3-8.2) 10/16/16 21:43 Albumin 4.0 g/dL (3.9-5) 10/16/16 21:43 Albumin/Globulin Ratio 1.1 % 10/16/16 21:43 HCG, Quant < 2 mIU/mL (0-4) 10/16/16 21:43
[2016-10-17] MEDS: DECADRON IV SCH (21:51)
[2016-10-18] MEDS: DepaCON 500 MG in NACL 0.9% 100 ML IV SCH (05:43)
[2016-10-18 08:37] VITALS: BP 125/76
[2016-10-18] MEDS: ZESTRIL PO SCH (10:00)
[2016-10-18] MEDS: LOPRESSOR PO SCH (10:00)
[2016-10-18] MEDS: DECADRON IV SCH (10:01)
--- NOTE | 2016-10-18 11:26 | Progress Note ---
Assessment and Plan 36 YO F Hx 1 prior reported migraine who p/w 1 week of constant crescendo pattern pressure pulsatile head pain assoc w/ N/photo-/sono-phobia and vague L > R sided heaviness but no other migrainous features. There are no meningeal signs/sx otherwise. I suspect hormonal, tension type or migrainous ASENCIO. Neuro exam nonfocal intact w/o deficits. CTH neg. MRI Brain +/- Paulo neg. ASENCIO improving w/ [place] protocol Plan and Recommendations: 1. Neuro checks 2. ODELL Protocol-Decadron 10mg IV x 1 and cont 4mg IV BID x up to 6 doses- thereafter can transition to Medrol Dose [place] taper, VPA 500mg IV Q8hrs x 3 doses 3. Analgesia PRN: Toradol 15-30mg IV Q4-6hrs prn and Fioricet 1-2 tabs Q4-6hrs prn 4. Reduce MAPs by 10-15% daily to achieve normotension 5. Neurologically clear for discharge if remains clinically stable. Subjective Date of service: 10/18/16 Principal diagnosis: migraine Interval history: ASENCIO improved. Objective - Vital Sign Vital Signs - 12hr 10/17/16 10/18/16 23:25 08:00 Temperature 98.8 F 98.2 F Pulse Rate [ 81 70 Right Radial] Respiratory 16 18 Rate Blood Pressure 124/84 125/76 [Right Arm] O2 Sat by Pulse 97 98 Oximetry - General Apperance Constitutional: comfortable - EENT EENT: ATNC, PERRL, mucous membranes moist, hearing intact, vision intact - Respiratory Respiratory: chest non-tender, normal breath sounds, no respiratory distress - Cardiovascular Cardiovascular: regular rate Extremities: no peripheral edema bilat, no clubbing, cyanosis, no inflammation, no ischemia or petechiae - Gastrointestinal Gastrointestinal: normoactive bowel sounds, soft, non-distended - Integumentary Integumentary: normal - Neurologic Cranial nerve examination: PERRL, EOMI, VFF, V1/V2/V3 grossly intact, face symmetric, tongue midline, intact, intact shoulder shrug, intact cough reflex, Intact Vestibulo-ocular r, intact corneal reflex, normal palatal elevation Speech examination: intact Detailed motor examination: grossly full strength in Motor examination - right side: 5/5: biceps, triceps, wrist flexion, wrist extension, field aide, hip flexors, knee extensors, dorsiflexion, toe extension (EHL) , plantarflexion Motor examination - left side: 5/5: biceps, triceps, wrist flexion, wrist extension, field aide, hip flexors, knee extensors, dorsiflexion, toe extension (EHL) , plantarflexion Detailed sensory examination: intact, light touch Reflex and gait examination: intact Reflexes: 2+: ankle, bicep, knee, tricep - Musculoskeletal Musculoskeletal: no fluid collection, no pain, normal range of motion - Psychiatric Psychiatric: mood/affect appropriate, cooperative - Laboratory Findings CBC and BMP: 10/16/16 21:43 10/16/16 21:43
--- NOTE | 2016-10-18 12:22 | Discharge Summary ---
Providers - Providers Date of Admission: 10/17/16 14:20 Date of discharge: 10/18/16 Attending physician: MICHELLE LUGO CONSULTS: Neurolohy Primary care physician: [employer] MANAGER Hospitalization Reason for admission: headache Condition: Stable Pertinent studies: CXR CT head MRI brain Disposition: DISCHARGED TO HOME OR SELFCARE Time spent for discharge: 35 min Core Measure Documentation - Palliative Care Palliative Care/ Comfort Measures: Not Applicable - Core Measures Any of the following diagnoses?: none Exam - Constitutional Vitals: Temp Pulse Resp BP Pulse Ox 98.2 F 70 18 125/76 98 10/18/16 08:00 10/18/16 08:00 10/18/16 08:00 10/18/16 08:00 10/18/16 08:00 Plan Activity: advance as tolerated Diet: low cholesterol, low salt Follow up with: PRIMARY CARE, [Primary Care Provider] - 3-5 Days Prescriptions: Butalb/Acetamin/Caff 50-325-40 [Fioricet] 2 tab PO Q4H PRN #30 tablet PRN Reason: Headache Ketorolac [Toradol] 10 mg PO Q6H PRN #20 tablet PRN Reason: Pain Lisinopril/Hydrochlorothiazide [Zestoretic 20-25 mg] 1 tab PO QDAY #30 tab methylPREDNISolone [Medrol Dose [place]] 4 mg PO BID #3 pack
== END 2016-10-18 16:27 | disposition home or self-care (01) | DRG 103 ==
LOC: ED 19:45 → INTOOBSV 23:26 → 3A 23:26 → OBSVTOIN 10-17 14:20
PROVIDERS: ADMIT Internal Medicine; ATTEND Internal Medicine
DX: G44.209 Tension-type headache, unspecified, not intractable (principal); G43.909 Migraine, unspecified, not intractable, without status migrainosus; I10 Essential (primary) hypertension; D64.9 Anemia, unspecified; Z88.8 Allergy status to other drugs, medicaments and biological substances
CPT/HCPCS: 36415; 70450; 70553; 71010; 80053; 82550; 82553; 84484; 84702; 85025; 85610; 85670; 85730; 93005; 93010; 96374; 96375; A9577; G0378; J1100; J1200; J1644; J2765; J2930; J3475

== ENCOUNTER 2016-10-21 21:27 | Emergency (ER) | payer SELFPAY ==
[2016-10-21 22:16] LABS: Basophils % (Auto) 0.5 % (0.0-1.8); Hematocrit 32.2 % (30.3-42.9); Mean Corpuscular HGB Conc 31 % (30-34); Mean Corpuscular Volume 81 fl (79-97); Platelet Count 264 K/mm3 (140-440); Red Blood Count 3.97 M/mm3 (3.65-5.03); Red Cell Distribution Width 17.1 % (13.2-15.2); White Blood Count 5.1 K/mm3 (4.5-11.0)
[2016-10-21 22:17] LABS: Mean Corpuscular Hemoglobin 25 pg (28-32)
[2016-10-21 22:31] LABS: Anion Gap 18 mmol/L; BUN/Creatinine Ratio 8.88; Blood Urea Nitrogen 8 mg/dL (7-17); Calcium 8.7 mg/dL (8.4-10.2); Carbon Dioxide 26 mmol/L (22-30); Chloride 98.3 mmol/L (98-107); Glucose 110 mg/dL (65-100); Potassium 3.9 mmol/L (3.6-5.0); Sodium 138 mmol/L (137-145)
[2016-10-22] MEDS ORDERED: TYLENOL ONE (02:05)
[2016-10-22] MEDS ORDERED: TYLENOL PO ONE (02:07)
[2016-10-22] MEDS ORDERED: TORADOL IM ONE (08:05)
--- NOTE | 2016-10-22 09:45 | XRay Report ---
ROUTINE CHEST, TWO VIEWS: HISTORY: Shortness of breath. The trachea, heart, mediastinal contour, lung lockett and bony thorax are unremarkable. No significant change since 10/16/16. IMPRESSION: Unremarkable chest x-ray.
--- NOTE | 2016-10-22 10:23 | Emergency Department Report ---
HPI - General Chief Complaint: Dyspnea/Respdistress Time Seen by Provider: 10/22/16 06:54 - HPI HPI: The patient is a 36-year-old female well known to me, evaluated by me personally 3 times at 2 separate medical facilities over the past 2 weeks, and whom presents for evaluation of dyspnea and chest pain today. The patient reports dyspnea since at 4 PM y/day, greater than 12 hours prior to my evaluation, constant since onset, moderate in severity, and is exacerbated with exertion. She is also experiencing a dry nonproductive cough. Her chest pain has been bilateral, achy, mild, exacerbated with coughing. The patient denies fever, hemoptysis, unilateral leg swelling, oral contraceptive use, recent immobilization, history of DVT or PE, recent cancer. Additionally the patient shared on recent evaluation that she received a CT scan of the chest within the past week that was negative. ED Past Medical Hx - Past Medical History Previous Medical History?: Yes Hx Hypertension: Yes Hx Congestive Heart Failure: No Hx Diabetes: No Hx Sickle Cell Disease: No Hx Asthma: No Hx COPD: No Hx HIV: No - Surgical History Past Surgical History?: Yes Hx Pacemaker: No Hx Internal Defibrillator: No Additional Surgical History: rt ear,tubaligation - Social History Smoking Status: Never Smoker Substance Use Type: None - Medications Home Medications: Home Medications Medication Instructions Recorded Confirmed Last Taken Type Cyclobenzaprine HCl [Flexeril 5 MG 5 mg PO Q8HR PRN #15 tab 10/15/16 10/22/16 1 Day Ago Rx TAB] Butalb/Acetamin/Caff 50-325-40 2 tab PO Q4H PRN #30 tablet 10/18/16 10/22/16 1 Day Ago Rx [Fioricet] Ketorolac [Toradol] 10 mg PO Q6H PRN #20 tablet 10/18/16 10/22/16 1 Day Ago Rx methylPREDNISolone [Medrol Dose 4 mg PO BID #3 pack 10/18/16 10/22/16 1 Day Ago Rx [place]] Cyclobenzaprine HCl [Flexeril 5 MG 5 mg PO Q8HR PRN #12 tab 10/22/16 Unknown Rx TAB] Lisinopril/Hydrochlorothiazide 1 tab PO QDAY 10/22/16 10/22/16 1 Day Ago History [Zestoretic 20-25 mg] ED Review of Systems ROS: Stated complaint: MAILE Other details as noted in HPI Constitutional: denies: fever ENT: denies: throat or neck pain Respiratory: reports: cough reports shortness of breath Cardiovascular: denies: chest pain Endocrine: denies unexplained weight loss or gain Gastrointestinal: denies: abdominal pain, nausea Genitourinary: denies: dysuria Musculoskeletal: denies: leg swelling Skin: denies: rash Neurological: denies: headache Hematological/Lymphatic: denies: easy bleeding or easy bruising Psych: denies sadness or hopelessness Physical Exam - Physical Exam Vital Signs: Vital Signs 10/21/16 10/22/16 10/22/16 21:51 02:02 06:55 Temperature 97.8 F 98.9 F Pulse Rate 79 68 74 Respiratory 24 18 18 Rate Blood Pressure 151/107 164/101 Blood Pressure 145/95 [Right] O2 Sat by Pulse 100 100 99 Oximetry 10/22/16 10/22/16 07:15 09:33 Temperature 98 F 98.2 F Pulse Rate 80 63 Respiratory 16 16 Rate Blood Pressure Blood Pressure 146/82 138/82 [Right] O2 Sat by Pulse 100 100 Oximetry Physical Exam: General: well-nourished, well-developed, no acute distress Head: Normocephalic, atraumatic Eyes: normal sclera ENT: Mucous membranes are pink and moist Neck: trachea midline, neck supple, No neck stiffness, no cervical adenopathy Respiratory: Breath sounds equal bilaterally, no wheezing, rales, or rhonchi Cardio: S1 and S2 present, no murmurs, rubs, gallops, capillary refill is brisk Abdomen: Normoactive bowel sounds, soft abdomen, no rigidity, no guarding or rebound tenderness Musc: No pitting edema Skin: No rash Neuro: no facial drooping, normal speech Psych: Normal affect ED Course Vital Signs 10/21/16 10/22/16 10/22/16 21:51 02:02 06:55 Temperature 97.8 F 98.9 F Pulse Rate 79 68 74 Respiratory 24 18 18 Rate Blood Pressure 151/107 164/101 Blood Pressure 145/95 [Right] O2 Sat by Pulse 100 100 99 Oximetry 10/22/16 10/22/16 07:15 09:33 Temperature 98 F 98.2 F Pulse Rate 80 63 Respiratory 16 16 Rate Blood Pressure Blood Pressure 146/82 138/82 [Right] O2 Sat by Pulse 100 100 Oximetry ED Medical Decision Making - Lab Data Result diagrams: 10/21/16 22:02 10/21/16 22:02 - Medical Decision Making The patient was seen and examined by myself. The patient is placed on a director of cardiac rehabilitation and continuous pulse ox. On initial evaluation, the patient was found to be in no distress. EKG was negative for findings suggestive of acute cardiac infarct. Labs and imaging are obtained. The patient is given a Tylenol test Lopressor cough, and Tylenol and IM Toradol for pain. Chest x-ray is negative for pneumothorax, focal consolidation, pulmonary vascular congestion, pleural effusion, or other obvious acute cardiopulmonary disease process. Lab results were non-concerning including level of troponin, BNP, D-Dimer< 300, WBC , hemoglobin, hematocrit, electrolytes, renal function. The patient was reevaluated and reported that their symptoms were markedly improved. As the patient has a ZAHRA risk score less than 2, and a well's score less than 2, the patient is at low risk of ACS or pulmonary emboli etiology of their symptoms. The patient is stable for discharge with outpatient follow-up. The patient is given follow-up and return instructions. The patient expressed understanding and agreed with the plan. The patient is discharged in stable condition. Critical care attestation.: If time is entered above; I have spent that time in minutes in the direct care of this critically ill patient, excluding procedure time. ED Disposition Clinical Impression: Acute upper respiratory infection, Acute chest pain Dyspnea, unspecified Qualifiers: Dyspnea type: unspecified Qualified Code(s): R06.00 - Dyspnea, unspecified Disposition: DISCHARGED TO HOME OR SELFCARE Is pt being admited?: No Does the pt Need Aspirin: No Condition: Stable Instructions: Chest Pain (ED), Upper Respiratory Infection (ED), Costochondritis (ED) Referrals: PRIMARY CARE, [Primary Care Provider] - 3-5 Days Time of Disposition: 10:23
[2016-10-22] MEDS ORDERED: TESSALON PERLES PO ONE (10:24)
[2016-10-22 10:50] VITALS: BP 147/86
== END 2016-10-22 10:50 | disposition home or self-care (01) ==
LOC: ED 21:27
DX: J06.9 Acute upper respiratory infection, unspecified (principal); I10 Essential (primary) hypertension; Z98.51 Tubal ligation status
CPT/HCPCS: 36415; 71020; 80048; 83880; 84484; 84703; 85025; 85379; 93005; 93010; 96372; 99284; J1885

== ENCOUNTER 2017-08-22 20:12 | Emergency (ER) | payer SELFPAY ==
[2017-08-22] MEDS ORDERED: ASPIRIN PO ONE (20:54)
[2017-08-22] MEDS ORDERED: CATAPRES PO ONE (21:03)
[2017-08-22] MEDS ORDERED: CATAPRES ONE (21:04)
[2017-08-22 21:10] LABS: Basophils # (Auto) 0.1 K/mm3 (0.0-0.1); Basophils % (Auto) 0.8 % (0.0-1.8); Eosinophils % (Auto) 0.7 % (0.0-4.3); Hematocrit 34.2 % (30.3-42.9); Hemoglobin 10.8 gm/dl (10.1-14.3); Lymphocytes # (Auto) 1.9 K/mm3 (1.2-5.4); Lymphocytes % (Auto) 29.7 % (13.4-35.0); Mean Corpuscular HGB Conc 32 % (30-34); Mean Corpuscular Hemoglobin 29 pg (28-32); Mean Corpuscular Volume 91 fl (79-97); Monocytes # (Auto) 0.3 K/mm3 (0.0-0.8); Monocytes % (Auto) 5.2 % (0.0-7.3); Platelet Count 290 K/mm3 (140-440); Red Blood Count 3.78 M/mm3 (3.65-5.03); Red Cell Distribution Width 15.4 % (13.2-15.2)
[2017-08-22 21:19] LABS: BUN/Creatinine Ratio 15; Blood Urea Nitrogen 12 mg/dL (7-17); Calcium 8.7 mg/dL (8.4-10.2); Hemolysis Index 13
[2017-08-22 23:09] VITALS: BP 130/87
[2017-08-23 00:24] LABS: Bacteria,Urine 1+ /HPF (Negative); Bilirubin,Urine NEG (Negative); Blood,Urine LG (Negative); Protein,Urine <15 mg/dL mg/dL (Negative); Urobilinogen,Urine < 2.0 mg/dL (<2.0)
[2017-08-23 00:26] LABS: RBC,Urine > 182.0 /HPF (0.0-6.0)
[2017-08-23 00:36] LABS: Color,Urine Yellow (Yellow)
== END 2017-08-22 23:30 | disposition left against medical advice (07) ==
LOC: ED 20:12
DX: R51 Headache (principal); R07.9 Chest pain, unspecified; Z53.21 Procedure and treatment not carried out due to patient leaving prior to being seen by health care provider
CPT/HCPCS: 36415; 80048; 81001; 84484; 85025; 93005; 93010

== ENCOUNTER 2019-04-22 20:44 | Emergency (ER) | payer MEDICAID ==
[2019-04-22 21:41] LABS: Bilirubin,Urine NEG (Negative); Blood,Urine SM (Negative); Color,Urine Straw (Yellow); Mucus,Urine FEW /HPF; Protein,Urine <15 mg/dL mg/dL (Negative); Urobilinogen,Urine < 2.0 mg/dL (<2.0)
[2019-04-22 21:44] LABS: Amphetamine Screen,Urine PRESUMPTIVE NEGATIVE; Benzodiazepines Screen,Urine PRESUMPTIVE NEGATIVE; Cannabinoid Screen,Urine PRESUMPTIVE NEGATIVE; Cocaine Screen,Urine PRESUMPTIVE NEGATIVE; Methadone Screen,Urine PRESUMPTIVE NEGATIVE; Opiate Screen,Urine PRESUMPTIVE NEGATIVE
[2019-04-22 22:00] LABS: HCG Qualitative,Urine Negative (Negative)
--- NOTE | 2019-04-22 22:15 | Emergency Department Report ---
ED Altered Mental Status HPI - General Chief Complaint: Altered Mental Status Stated Complaint: AMS Time Seen by Provider: 04/22/19 22:14 Source: patient, EMS Mode of arrival: Ambulatory Limitations: No Limitations - History of Present Illness Initial Comments: 38 y.o aaf presents to ER with mild confusion, that has now resolved. Patient was supposed to meet some friends, but was found in her car with confusion. Currently patient is no longer confused, alert and oriented, and doesn't remember event. Denies any alcohol or drug use. MD Complaint: altered mental status, confusion -: Sudden - Related Data Home Medications Medication Instructions Recorded Confirmed Last Taken Lisinopril/Hydrochlorothiazide 1 tab PO QDAY 10/22/16 10/22/16 1 Day Ago [Zestoretic 20-25 mg] ~10/21/16 Previous Rx's Medication Instructions Recorded Last Taken Type Cyclobenzaprine HCl [Flexeril 5 MG 5 mg PO Q8HR PRN #15 tab 10/15/16 1 Day Ago Rx TAB] ~10/21/16 Butalb/Acetamin/Caff 50-325-40 2 tab PO Q4H PRN #30 tablet 10/18/16 1 Day Ago Rx [Fioricet 50-325-40] ~10/21/16 Ketorolac [Toradol] 10 mg PO Q6H PRN #20 tablet 10/18/16 1 Day Ago Rx ~10/21/16 methylPREDNISolone [Medrol Dose 4 mg PO BID #3 pack 10/18/16 1 Day Ago Rx [place]] ~10/21/16 Cyclobenzaprine HCl [Flexeril 5 MG 5 mg PO Q8HR PRN #12 tab 10/22/16 Unknown Rx TAB] cephALEXin [Keflex] 500 mg PO Q12HR 7 Days #14 cap 04/23/19 Unknown Rx Allergies Allergy/AdvReac Type Severity Reaction Status Date / Time hydrocodone AdvReac Vomiting Verified 04/09/16 19:55 ED Review of Systems ROS: Stated complaint: AMS Other details as noted in HPI Comment: All other systems reviewed and negative ENT: denies: ear pain Gastrointestinal: denies: abdominal pain, nausea, vomiting Genitourinary: denies: urgency, dysuria Musculoskeletal: denies: back pain Skin: denies: rash, lesions Neurological: denies: headache, weakness Psychiatric: denies: anxiety, depression ED Past Medical Hx - Past Medical History Hx Hypertension: Yes Hx CVA: Yes (TIA) Hx Congestive Heart Failure: No Hx Diabetes: No Hx Sickle Cell Disease: No Hx Headaches / Migraines: Yes (Tension headache) Hx Asthma: No Hx COPD: No Hx HIV: No Additional medical history: anemia - Surgical History Hx Pacemaker: No Hx Internal Defibrillator: No Additional Surgical History: rt ear,tubaligation - Social History Smoking Status: Current Some Day Smoker Substance Use Type: Marijuana - Medications Home Medications: Home Medications Medication Instructions Recorded Confirmed Last Taken Type Cyclobenzaprine HCl [Flexeril 5 MG 5 mg PO Q8HR PRN #15 tab 10/15/16 10/22/16 1 Day Ago Rx TAB] ~10/21/16 Butalb/Acetamin/Caff 50-325-40 2 tab PO Q4H PRN #30 tablet 10/18/16 10/22/16 1 Day Ago Rx [Fioricet 50-325-40] ~10/21/16 Ketorolac [Toradol] 10 mg PO Q6H PRN #20 tablet 10/18/16 10/22/16 1 Day Ago Rx ~10/21/16 methylPREDNISolone [Medrol Dose 4 mg PO BID #3 pack 10/18/16 10/22/16 1 Day Ago Rx [place]] ~10/21/16 Cyclobenzaprine HCl [Flexeril 5 MG 5 mg PO Q8HR PRN #12 tab 10/22/16 Unknown Rx TAB] Lisinopril/Hydrochlorothiazide 1 tab PO QDAY 10/22/16 10/22/16 1 Day Ago History [Zestoretic 20-25 mg] ~10/21/16 cephALEXin [Keflex] 500 mg PO Q12HR 7 Days #14 cap 04/23/19 Unknown Rx ED Physical Exam - General Limitations: No Limitations General appearance: alert, in no apparent distress - Head Head exam: Present: atraumatic, normocephalic - Eye Eye exam: Present: normal appearance, PERRL, EOMI Pupils: Present: normal accommodation - ENT ENT exam: Present: normal exam, normal orophraynx - Neck Neck exam: Present: normal inspection - Respiratory Respiratory exam: Present: normal lung sounds bilaterally - Cardiovascular Cardiovascular Exam: Present: regular rate, normal rhythm - GI/Abdominal GI/Abdominal exam: Present: soft - Extremities Exam Extremities exam: Present: normal inspection - Back Exam Back exam: Present: normal inspection - Neurological Exam Neurological exam: Present: alert, oriented X3, CN II-XII intact - Skin Skin exam: Present: warm ED Course Vital Signs 04/22/19 04/22/19 04/22/19 20:52 21:05 21:12 Temperature 98.1 F Pulse Rate 104 H 100 H 95 H Respiratory 13 18 16 Rate Blood Pressure 143/92 150/93 O2 Sat by Pulse 99 100 98 Oximetry 04/22/19 04/22/19 04/22/19 21:30 23:15 23:30 Temperature Pulse Rate 92 H Respiratory 22 Rate Blood Pressure 153/80 160/82 143/73 O2 Sat by Pulse 99 88 99 Oximetry 04/23/19 00:00 Temperature Pulse Rate Respiratory Rate Blood Pressure 163/100 O2 Sat by Pulse 100 Oximetry - Lab Data Result diagrams: 04/22/19 22:35 04/22/19 22:35 Lab Results 04/22/19 04/22/19 04/22/19 Range/Units 21:10 21:10 22:35 WBC 7.9 (4.5-11.0) K/mm3 RBC 3.94 (3.65-5.03) M/mm3 Hgb 10.3 (10.1-14.3) gm/dl Hct 32.2 (30.3-42.9) % MCV 82 (79-97) fl MCH 26 L (28-32) pg MCHC 32 (30-34) % RDW 17.4 H (13.2-15.2) % Plt Count 304 (140-440) K/mm3 Lymph % (Auto) 10.8 L (13.4-35.0) % [place] % (Auto) 4.0 (0.0-7.3) % Eos % (Auto) 0.0 (0.0-4.3) % Baso % (Auto) 0.4 (0.0-1.8) % Lymph # 0.8 L (1.2-5.4) K/mm3 [place] # 0.3 (0.0-0.8) K/mm3 Eos # 0.0 (0.0-0.4) K/mm3 Baso # 0.0 (0.0-0.1) K/mm3 Seg Neutrophils % 84.8 H (40.0-70.0) % Seg Neutrophils # 6.7 (1.8-7.7) K/mm3 Sodium (137-145) mmol/L Potassium (3.6-5.0) mmol/L Chloride (98-107) mmol/L Carbon Dioxide (22-30) mmol/L Anion Gap mmol/L BUN (7-17) mg/dL Creatinine (0.7-1.2) mg/dL Estimated GFR ml/min BUN/Creatinine Ratio % Glucose (65-100) mg/dL Calcium (8.4-10.2) mg/dL Total Bilirubin (0.1-1.2) mg/dL AST (5-40) units/L ALT (7-56) units/L Alkaline Phosphatase (35-129) units/L Total Protein (6.3-8.2) g/dL Albumin (3.9-5) g/dL Albumin/Globulin Ratio % Urine Color Straw (Yellow) Urine Turbidity Slightly-cloudy (Clear) Urine pH 6.0 (5.0-7.0) Ur Specific [place] 1.011 (1.003-1.030) Urine Protein <15 mg/dl (Negative) mg/dL Urine Glucose (UA) Neg (Negative) mg/dL Urine Ketones Neg (Negative) mg/dL Urine Blood Sm (Negative) Urine Nitrite Neg (Negative) Urine Bilirubin Neg (Negative) Urine Urobilinogen < 2.0 (<2.0) mg/dL Ur Leukocyte Esterase Tr (Negative) Urine WBC (Auto) 1.0 (0.0-6.0) /HPF Urine RBC (Auto) 3.0 (0.0-6.0) /HPF U Epithel Cells (Auto) 25.0 H (0-13.0) /HPF Urine Mucus Few /HPF Urine HCG, Qual Negative (Negative) Urine Opiates Screen Presumptive negative Urine Methadone Screen Presumptive negative Ur Barbiturates Screen Presumptive negative Ur Phencyclidine Scrn Presumptive negative Ur Amphetamines Screen Presumptive negative U Benzodiazepines Scrn Presumptive negative Urine Cocaine Screen Presumptive negative U Marijuana (THC) Screen Presumptive negative Drugs of Abuse Note Disclamer Plasma/Serum Alcohol (0-0.07) % 04/22/19 04/22/19 Range/Units 22:35 22:35 WBC (4.5-11.0) K/mm3 RBC (3.65-5.03) M/mm3 Hgb (10.1-14.3) gm/dl Hct (30.3-42.9) % MCV (79-97) fl MCH (28-32) pg MCHC (30-34) % RDW (13.2-15.2) % Plt Count (140-440) K/mm3 Lymph % (Auto) (13.4-35.0) % [place] % (Auto) (0.0-7.3) % Eos % (Auto) (0.0-4.3) % Baso % (Auto) (0.0-1.8) % Lymph # (1.2-5.4) K/mm3 [place] # (0.0-0.8) K/mm3 Eos # (0.0-0.4) K/mm3 Baso # (0.0-0.1) K/mm3 Seg Neutrophils % (40.0-70.0) % Seg Neutrophils # (1.8-7.7) K/mm3 Sodium 137 (137-145) mmol/L Potassium 3.9 (3.6-5.0) mmol/L Chloride 101.3 (98-107) mmol/L Carbon Dioxide 22 (22-30) mmol/L Anion Gap 18 mmol/L BUN 15 (7-17) mg/dL Creatinine 1.2 (0.7-1.2) mg/dL Estimated GFR > 60 ml/min BUN/Creatinine Ratio 13 % Glucose 96 (65-100) mg/dL Calcium 9.1 (8.4-10.2) mg/dL Total Bilirubin < 0.20 (0.1-1.2) mg/dL AST 16 (5-40) units/L ALT 11 (7-56) units/L Alkaline Phosphatase 58 (35-129) units/L Total Protein 8.2 (6.3-8.2) g/dL Albumin 4.3 (3.9-5) g/dL Albumin/Globulin Ratio 1.1 % Urine Color (Yellow) Urine Turbidity (Clear) Urine pH (5.0-7.0) Ur Specific [place] (1.003-1.030) Urine Protein (Negative) mg/dL Urine Glucose (UA) (Negative) mg/dL Urine Ketones (Negative) mg/dL Urine Blood (Negative) Urine Nitrite (Negative) Urine Bilirubin (Negative) Urine Urobilinogen (<2.0) mg/dL Ur Leukocyte Esterase (Negative) Urine WBC (Auto) (0.0-6.0) /HPF Urine RBC (Auto) (0.0-6.0) /HPF U Epithel Cells (Auto) (0-13.0) /HPF Urine Mucus /HPF Urine HCG, Qual (Negative) Urine Opiates Screen Urine Methadone Screen Ur Barbiturates Screen Ur Phencyclidine Scrn Ur Amphetamines Screen U Benzodiazepines Scrn Urine Cocaine Screen U Marijuana (THC) Screen Drugs of Abuse Note Plasma/Serum Alcohol < 0.01 (0-0.07) % Critical care attestation.: If time is entered above; I have spent that time in minutes in the direct care of this critically ill patient, excluding procedure time. ED Disposition Clinical Impression: Transient confusion UTI (urinary tract infection) Qualifiers: Urinary tract infection type: acute cystitis Hematuria presence: without hematuria Qualified Code(s): N30.00 - Acute cystitis without hematuria Disposition: DC- TO HOME OR SELFCARE Is pt being admited?: No Does the pt Need Aspirin: No Condition: Stable Prescriptions: cephALEXin [Keflex] 500 mg PO Q12HR 7 Days #14 cap Referrals: HANNAH MENJIVAR MD [Referring] - 3-5 Days
[2019-04-22 22:50] LABS: Basophils % (Auto) 0.4 % (0.0-1.8); Hematocrit 32.2 % (30.3-42.9); Hemoglobin 10.3 gm/dl (10.1-14.3); Lymphocytes # (Auto) 0.8 K/mm3 (1.2-5.4); Lymphocytes % (Auto) 10.8 % (13.4-35.0); Mean Corpuscular HGB Conc 32 % (30-34); Mean Corpuscular Volume 82 fl (79-97); Monocytes # (Auto) 0.3 K/mm3 (0.0-0.8); Platelet Count 304 K/mm3 (140-440); Red Blood Count 3.94 M/mm3 (3.65-5.03); Red Cell Distribution Width 17.4 % (13.2-15.2)
[2019-04-22 23:03] LABS: Alanine Aminotransferase 11 units/L (7-56); Albumin 4.3 g/dL (3.9-5); BUN/Creatinine Ratio 13; Blood Urea Nitrogen 15 mg/dL (7-17); Calcium 9.1 mg/dL (8.4-10.2); Hemolysis Index 0
--- NOTE | 2019-04-22 23:34 | Cat Scan Report ---
CT HEAD WITHOUT CONTRAST INDICATION: ams TECHNIQUE: All CT scans at this location are performed using CT dose reduction for ALARA by means of automated exposure control. COMPARISON: 10/16/2016 FINDINGS: BRAIN: No hemorrhage or mass effect are seen. No evidence of acute infarction is noted. ORBITS: Normal as visualized. SOFT TISSUES OF HEAD: Normal. CALVARIUM: Right mastoid surgical changes are again noted. VISUALIZED PARANASAL SINUSES AND MASTOID AIR CELLS: Clear. ADDITIONAL FINDINGS: None. IMPRESSION: No acute intracranial abnormality. Signer Name: Jeremie Galo MD Signed: 04/22/2019 11:30 PM Workstation Name: [id number]
[2019-04-23 02:22] VITALS: BP 152/89
== END 2019-04-23 01:45 | disposition home or self-care (01) ==
LOC: ED 20:44
DX: N39.0 Urinary tract infection, site not specified (principal); I10 Essential (primary) hypertension; G44.209 Tension-type headache, unspecified, not intractable; F17.200 Nicotine dependence, unspecified, uncomplicated; F12.10 Cannabis abuse, uncomplicated; Z88.5 Allergy status to narcotic agent; Z98.51 Tubal ligation status; Z79.899 Other long term (current) drug therapy
CPT/HCPCS: 36415; 70450; 80053; 80307; 80320; 81001; 81025; 85025; 99284; G0480